=== PATIENT | male | born 1985 | race Two or more races ===

== ENCOUNTER 2017-05-30 13:12 | Emergency (ER) | payer OTHER ==
[~2017-05-30] VITALS: Ht 180.3 cm; Wt 75.0 kg
[2017-05-30 15:20] VITALS: BP 122/67
== END 2017-05-30 15:33 | disposition home or self-care (01) ==
LOC: ER 13:12
DX: S62.334A Displaced fracture of neck of fourth metacarpal bone, right hand, initial encounter for closed fracture (principal); S62.336A Displaced fracture of neck of fifth metacarpal bone, right hand, initial encounter for closed fracture; J45.909 Unspecified asthma, uncomplicated; W22.01XA Walked into wall, initial encounter; Y93.89 Activity, other specified; Y92.89 Other specified places as the place of occurrence of the external cause; Y99.8 Other external cause status
CPT/HCPCS: 29125; 73130; 99284

== ENCOUNTER 2024-08-19 10:58 | Emergency (ER) | payer OTHER ==
[~2024-08-19] VITALS: Ht 180.3 cm; Wt 81.0 kg
[2024-08-19 10:59] VITALS: O2SAT 99
[2024-08-19 11:06] VITALS: BP 127/70; PULSE 67; RESP 14; TEMP 36.7; O2SAT 98
[2024-08-19] MEDS ORDERED: AMOX1TAB16 MT (11:29)
== END 2024-08-19 11:43 | disposition home or self-care (01) ==
LOC: ER 10:58
DX: H00.012 Hordeolum externum right lower eyelid (principal); J45.909 Unspecified asthma, uncomplicated
CPT/HCPCS: 99283